=== PATIENT | male | born 1975 | race Caucasian/White ===

== ENCOUNTER 2018-04-23 12:48 | Inpatient (IN) | payer MEDICARE, MEDICAID ==
[~2018-04-23] VITALS: Ht 180.3 cm; Wt 103.0 kg
[~2018-04-23 12:48] MED LIST: OLAN10TA3 PO
[2018-04-23] MEDS ORDERED: LORazepam 2 MG TABLET PO PRN (15:45)
[2018-04-23] MEDS ORDERED: HALOPERIDOL 5 MG TABLET PO PRN (15:45)
[2018-04-23 16:02] VITALS: BP 148/78
[2018-04-23 17:00] VITALS: BP 151/93
[2018-04-23] MEDS ORDERED: PNEUMOCOCCAL VACCINE POLYVALENT 0.5 ML VIAL [PPSV23] IM ONE (18:15)
[2018-04-23] MEDS ORDERED: ONDANSETRON HCL 4 MG TABLET PO PRN (19:15)
[2018-04-23] MEDS ORDERED: BENZOCAINE/MENTHOL LOZENGE MM PRN (19:15)
[2018-04-23] MEDS ORDERED: ACETAMINOPHEN 325 MG TABLET PO PRN (19:15)
[2018-04-23] MEDS ORDERED: MAGNESIUM HYDROXIDE SUSPENSION 30 ML UDCUP PO PRN (19:15)
[2018-04-23] MEDS ORDERED: BACITRACIN 28.4 GM OINTMENT TP PRN (19:15)
[2018-04-23] MEDS ORDERED: MAG HYDROX/AL HYDROX/SIMETH ES 30 ML SUSPENSION UDCUP PO PRN (19:15)
[2018-04-23] MEDS ORDERED: PETROLATUM,WHITE 71 GM JELLY TP PRN (19:15)
[2018-04-23] MEDS ORDERED: LOPERAMIDE HCL 2 MG CAPSULE PO PRN (19:15)
[2018-04-23] MEDS ORDERED: CloNIDine HCL 0.1 MG TABLET PO PRN (19:15)
[2018-04-23] MEDS ORDERED: IBUPROFEN 600 MG TABLET PO PRN (19:15)
[2018-04-23] MEDS ORDERED: ALBUTEROL SULFATE HFA 90 MCG/PUFF 8 GM INHALER IH PRN (19:15)
[2018-04-23] MEDS: OLANZapine 7.5 MG TABLET PO SCH (20:51)
[2018-04-24 04:16] VITALS: BP 138/94
[2018-04-24 08:24] VITALS: BP 137/88
[2018-04-24] MEDS: OMEPRAZOLE 20 MG CAPSULE PO SCH (08:57)
[2018-04-24] MEDS: LISINOPRIL 10 MG TABLET PO SCH (08:57)
[2018-04-24] MEDS: DOCUSATE SODIUM 100 MG CAPSULE PO SCH (08:57)
[2018-04-24 16:09] VITALS: BP 120/80
[2018-04-24] MEDS: ZOLPIDEM TARTRATE 10 MG TABLET PO PRN (20:24)
[2018-04-24] MEDS: OLANZapine 7.5 MG TABLET PO SCH (20:24)
[2018-04-25 03:49] VITALS: BP 113/95
[2018-04-25 08:43] VITALS: BP 119/72
[2018-04-25] MEDS: LISINOPRIL 10 MG TABLET PO SCH (09:00)
[2018-04-25] MEDS: OMEPRAZOLE 20 MG CAPSULE PO SCH (09:00)
[2018-04-25] MEDS: DOCUSATE SODIUM 100 MG CAPSULE PO SCH (09:00)
[2018-04-25 16:10] VITALS: BP 131/72
[2018-04-25] MEDS: OLANZapine 7.5 MG TABLET PO SCH (20:28)
[2018-04-25] MEDS: ZOLPIDEM TARTRATE 10 MG TABLET PO PRN (21:19)
[2018-04-26 02:00] VITALS: BP 118/91
[2018-04-26 08:18] VITALS: BP 118/88
[2018-04-26] MEDS: DOCUSATE SODIUM 100 MG CAPSULE PO SCH (08:35)
[2018-04-26] MEDS: LISINOPRIL 10 MG TABLET PO SCH (08:36)
[2018-04-26] MEDS: OMEPRAZOLE 20 MG CAPSULE PO SCH (08:36)
[2018-04-26 16:14] VITALS: BP 113/79
[2018-04-26] MEDS: OLANZapine 7.5 MG TABLET PO SCH (20:45)
[2018-04-27 05:29] VITALS: BP 120/81
[2018-04-27 08:13] VITALS: BP 131/78
[2018-04-27] MEDS: OMEPRAZOLE 20 MG CAPSULE PO SCH (09:00)
[2018-04-27] MEDS: DOCUSATE SODIUM 100 MG CAPSULE PO SCH (09:00)
[2018-04-27] MEDS: LISINOPRIL 10 MG TABLET PO SCH (09:00)
[2018-04-27 16:26] VITALS: BP 140/81
[2018-04-27] MEDS: ZOLPIDEM TARTRATE 10 MG TABLET PO PRN (20:22)
[2018-04-27] MEDS: OLANZapine 7.5 MG TABLET PO SCH (20:23)
[2018-04-28 00:19] VITALS: BP 117/85
[2018-04-28 08:06] VITALS: BP 142/87
[2018-04-28] MEDS: LISINOPRIL 10 MG TABLET PO SCH (08:38)
[2018-04-28] MEDS: OMEPRAZOLE 20 MG CAPSULE PO SCH (08:38)
[2018-04-28] MEDS: DOCUSATE SODIUM 100 MG CAPSULE PO SCH (08:38)
[2018-04-28 16:12] VITALS: BP 138/84
[2018-04-28] MEDS: ZOLPIDEM TARTRATE 10 MG TABLET PO PRN (19:56)
[2018-04-28] MEDS: OLANZapine 7.5 MG TABLET PO SCH (21:00)
[2018-04-29 02:40] VITALS: BP 115/77
[2018-04-29 08:08] VITALS: BP 143/85
[2018-04-29] MEDS: DOCUSATE SODIUM 100 MG CAPSULE PO SCH (09:00)
[2018-04-29] MEDS: OMEPRAZOLE 20 MG CAPSULE PO SCH (09:00)
[2018-04-29] MEDS: LISINOPRIL 10 MG TABLET PO SCH (09:00)
[2018-04-29 16:26] VITALS: BP 138/92
[2018-04-29] MEDS: OLANZapine 7.5 MG TABLET PO SCH (20:35)
[2018-04-29] MEDS: ZOLPIDEM TARTRATE 10 MG TABLET PO PRN (21:11)
[2018-04-30 06:16] VITALS: BP 129/84
[2018-04-30 08:06] VITALS: BP 142/80
[2018-04-30] MEDS: OMEPRAZOLE 20 MG CAPSULE PO SCH (08:42)
[2018-04-30] MEDS: DOCUSATE SODIUM 100 MG CAPSULE PO SCH (08:42)
[2018-04-30] MEDS: LISINOPRIL 10 MG TABLET PO SCH (08:42)
[2018-04-30 16:12] VITALS: BP 127/89
[2018-04-30] MEDS: OLANZapine 7.5 MG TABLET PO SCH (20:10)
[2018-04-30] MEDS: ZOLPIDEM TARTRATE 10 MG TABLET PO PRN (20:11)
[2018-05-01 04:08] VITALS: BP 124/62
[2018-05-01 08:28] VITALS: BP 140/77
[2018-05-01] MEDS: OMEPRAZOLE 20 MG CAPSULE PO SCH (08:34)
[2018-05-01] MEDS: DOCUSATE SODIUM 100 MG CAPSULE PO SCH (08:34)
[2018-05-01] MEDS: LISINOPRIL 10 MG TABLET PO SCH (08:34)
[2018-05-01 16:10] VITALS: BP 145/87
[2018-05-01] MEDS: ZOLPIDEM TARTRATE 10 MG TABLET PO PRN (20:14)
[2018-05-01] MEDS: OLANZapine 7.5 MG TABLET PO SCH (20:15)
[2018-05-02 02:30] VITALS: BP 134/90
[2018-05-02 08:00] VITALS: BP 130/78
[2018-05-02] MEDS: DOCUSATE SODIUM 100 MG CAPSULE PO SCH ×2 (08:57→09:00)
[2018-05-02] MEDS: OMEPRAZOLE 20 MG CAPSULE PO SCH ×2 (08:57→09:00)
[2018-05-02] MEDS: LISINOPRIL 10 MG TABLET PO SCH ×2 (08:58→09:00)
[2018-05-02 18:08] VITALS: BP 118/76
[2018-05-02] MEDS ORDERED: OLAN7.5T2 PO (19:40)
[2018-05-02] MEDS: QUEtiapine FUMARATE 200 MG TABLET PO SCH (20:36)
[2018-05-03 00:44] VITALS: BP 128/86
[2018-05-03 08:17] VITALS: BP 114/65
[2018-05-03 08:20] LABS: BASOPHILS % (AUTO) 0.2 % (0.0-2.0); EOSINOPHILS % (AUTO) 0 % (1.0-6.0); LYMPHOCYTES # (AUTO) 1.9 K/uL (1.0-4.8); LYMPHOCYTES % (AUTO) 34.5 % (22.0-44.0); MEAN CORPUSCULAR HEMOGLOBIN 30.1 pg (26.0-34.0); MEAN CORPUSCULAR HGB CONC 34.8 G/dL (31.0-37.0); MEAN CORPUSCULAR VOLUME 87 fL (80-100); MONOCYTES # (AUTO) 0.6 K/uL (0.1-1.0); MONOCYTES % (AUTO) 11.1 % (2.0-9.0); NEUTROPHILS # (AUTO) 3.1 K/uL (1.8-7.7); NEUTROPHILS % (AUTO) 54.2 % (40.0-70.0); PLATELET COUNT (AUTO) 212 K/uL (150-450); RED BLOOD CELL COUNT(AUTO) 5.33 MIL/uL (4.50-5.90); RED CELL DISTRIBUTION WIDTH 12.9 % (11.5-14.5)
[2018-05-03] MEDS: QUEtiapine FUMARATE 100 MG TABLET PO SCH (08:35)
[2018-05-03] MEDS: DOCUSATE SODIUM 100 MG CAPSULE PO SCH (08:44)
[2018-05-03] MEDS: OMEPRAZOLE 20 MG CAPSULE PO SCH (08:45)
[2018-05-03] MEDS: LISINOPRIL 10 MG TABLET PO SCH (08:45)
[2018-05-03 08:47] LABS: HEMOGLOBIN A1C 5.6 % (4.5-6.2)
[2018-05-03 08:56] LABS: ALANINE AMINOTRANSFERASE 46 U/L (12-78); ALBUMIN 3.4 g/dL (3.4-5.0); ALKALINE PHOSPHATASE 79 U/L (46-116); ANION GAP 4 mmol/L (8-16); ASPARTATE AMINOTRANSFERASE 21 U/L (15-37); BILIRUBIN,TOTAL 0.5 mg/dL (0.1-1.0); CALCIUM, TOTAL 8.7 mg/dL (8.8-10.5); CARBON DIOXIDE 33 mmol/L (22-29); CHLORIDE 101 mmol/L (98-107); CHOL/HDL RATIO 4.4 (4.2-7.3); CHOLESTEROL 212 mg/dL (131-200); CREATININE 0.85 mg/dL (0.60-1.30); FREE T4 (FREE THYROXINE) 0.77 ng/dL (0.76-1.46); GLOMERULAR FILTR. RATE CALC > 60 mL/min (>60); GLUCOSE,RANDOM 86 mg/dL (70-110); HDL CHOLESTEROL 48 mg/dL (40-60); LDL CHOL (CALC.) 132 mg/dL (0-130); POTASSIUM 4.8 mmol/L (3.5-5.1); SODIUM SERUM 138 mmol/L (136-145); THYROID STIMULATING HORMONE 1.97 uIU/mL (0.36-3.74); TOTAL PROTEIN, SERUM 6.4 g/dL (6.4-8.2); TRIGLYCERIDES 162 mg/dL (15-150); UREA NITROGEN, BLOOD 14 mg/dL (7-18)
[2018-05-03] MEDS: QUEtiapine FUMARATE 200 MG TABLET PO SCH (20:35)
[2018-05-03 22:32] VITALS: BP 118/75
[2018-05-04 01:52] VITALS: BP 120/78
[2018-05-04] MEDS: QUEtiapine FUMARATE 100 MG TABLET PO SCH (08:25)
[2018-05-04 08:28] VITALS: BP 132/90
[2018-05-04] MEDS: LISINOPRIL 10 MG TABLET PO SCH (08:34)
[2018-05-04] MEDS: DOCUSATE SODIUM 100 MG CAPSULE PO SCH (08:34)
[2018-05-04] MEDS: OMEPRAZOLE 20 MG CAPSULE PO SCH (08:34)
[2018-05-04 16:14] VITALS: BP 141/90
[2018-05-04] MEDS: QUEtiapine FUMARATE 200 MG TABLET PO SCH (20:36)
[2018-05-05 08:16] VITALS: BP 123/77
[2018-05-05] MEDS: OMEPRAZOLE 20 MG CAPSULE PO SCH (08:42)
[2018-05-05] MEDS: QUEtiapine FUMARATE 100 MG TABLET PO SCH (08:42)
[2018-05-05] MEDS: DOCUSATE SODIUM 100 MG CAPSULE PO SCH (08:42)
[2018-05-05] MEDS: LISINOPRIL 10 MG TABLET PO SCH (08:43)
[2018-05-05 16:31] VITALS: BP 142/98
[2018-05-05] MEDS: QUEtiapine FUMARATE 200 MG TABLET PO SCH (20:47)
[2018-05-06 05:08] VITALS: BP 129/63
[2018-05-06 08:08] VITALS: BP 135/84
[2018-05-06] MEDS: QUEtiapine FUMARATE 100 MG TABLET PO SCH (08:14)
[2018-05-06] MEDS: OMEPRAZOLE 20 MG CAPSULE PO SCH (08:14)
[2018-05-06] MEDS: LISINOPRIL 10 MG TABLET PO SCH (08:14)
[2018-05-06] MEDS: DOCUSATE SODIUM 100 MG CAPSULE PO SCH (08:14)
[2018-05-06] MEDS ORDERED: LISI-661 PO (09:19)
[2018-05-06] MEDS ORDERED: QUET100T PO (09:19)
[2018-05-06] MEDS ORDERED: QUET200T PO (09:19)
[2018-05-06] MEDS ORDERED: QUET50TA PO (09:19)
== END 2018-05-06 10:15 | disposition home or self-care (01) | DRG 885 ==
LOC: B2X 15:30
PROVIDERS: ADMIT Psychiatry & Neurology Psychiatry; ATTEND Psychiatry & Neurology Psychiatry
DX: F20.0 Paranoid schizophrenia (principal); Z28.21 Immunization not carried out because of patient refusal; F12.90 Cannabis use, unspecified, uncomplicated; F17.200 Nicotine dependence, unspecified, uncomplicated; G47.00 Insomnia, unspecified; I10 Essential (primary) hypertension; J44.9 Chronic obstructive pulmonary disease, unspecified; K21.9 Gastro-esophageal reflux disease without esophagitis; K59.00 Constipation, unspecified; Z59.0 Homelessness; Z71.6 Tobacco abuse counseling; Z71.51 Drug abuse counseling and surveillance of drug abuser
CPT/HCPCS: 83036; 84439; 84443; 87081